=== PATIENT | female | born 1945 | race Caucasian/White ===

== ENCOUNTER → 2017-10-11 | Outpatient (REF) | payer MEDICARE ==
[2017-10-11 16:06] LABS: BASO # 0.1 10^3/uL (0.0-0.2); BASO % 0.7 % (0.0-1.0); EOS # 0.3 10^3/uL (0.0-0.50); EOS % 2.6 % (0.0-3.0); HEMATOCRIT 41.9 % (36.0-47.0); HEMOGLOBIN 13.2 g/dl (12.0-16.0); IMMATURE GRANULOCYTE % 0.2 % (0-3.0); LYMPH % 18.6 % (24.0-44.0); MEAN CORPUSCULAR HEMOGLOBIN 27.1 pg (27.0-33.0); MEAN CORPUSCULAR HGB CONC 31.5 g/dl (32.0-36.5); MONO # 0.6 10^3/uL (0.0-0.8); MONO % 5.7 % (0.0-5.0); NEUTROPHILS # 7.7 10^3/uL (1.8-7.7); NEUTROPHILS % 72.2 % (36.0-66.0); PLATELET COUNT, AUTOMATED 309 10^3/uL (150-450); RED BLOOD COUNT 4.87 10^6/uL (4.00-5.40); RED CELL DISTRIBUTION WIDTH 14.6 % (11.5-14.5); WHITE BLOOD COUNT 10.6 10^3/uL (4.0-10.0)
[2017-10-11 16:17] LABS: C REACTIVE PROTEIN QUANTITATIV 0.63 MG/DL (0.00-0.30)
[2017-10-11 17:59] LABS: ERYTHROCYTE SEDIMENTATION RATE 32 mm/hr (0-30)
== END ==
LOC: M LABDRAW1 13:43
DX: Z96.652 Presence of left artificial knee joint (principal)
CPT/HCPCS: 86140

== ENCOUNTER → 2017-11-11 | Outpatient (CLI) | payer MEDICARE | LOC: M RAD 09:45 | DX: Z96.652 Presence of left artificial knee joint (principal) | CPT/HCPCS: 78315 ==

== ENCOUNTER 2019-04-17 11:11 | Day surgery (SDC) | payer MEDICARE ==
[~2019-04-17] VITALS: Ht 165.1 cm; Wt 124.7 kg
[~2019-04-17 11:11] MED LIST: ATOR1TAB21 PO; CARV25TA PO; COLE1TAB PO; ENAL20TA PO; FURO40TA2 PO; LIDOCAINE 1% MDV 20ML VIAL SQ PRN; LR 1,000 ML IV ONE; WARF-58 PO; ceFAZolin SOD 1 GM in D5W MINI-BAG PLUS 50 ML IV ONE; ceFAZolin SOD 2 GM in IV 1 EA IV ONE
[2019-04-17] MEDS ORDERED: PROPOFOL 200 MG/20 ML VIAL As Ordered ONE (11:44)
[2019-04-17] MEDS ORDERED: LIDOCAINE 2% INJ 100 MG/5 ML SDV (FOR ANES.) As Ordered ONE (11:44)
[2019-04-17] MEDS ORDERED: dexameTHASONE 4 MG/ML 1ML VIAL (J1100) As Ordered ONE (11:45)
[2019-04-17] MEDS ORDERED: ONDANSETRON 4MG/2ML VIAL (J2405) As Ordered ONE (11:45)
[2019-04-17] MEDS ORDERED: fentaNYL 100 MCG/2 ML INJECTION (J3010) As Ordered ONE (11:46)
[2019-04-17] MEDS ORDERED: KETOROLAC 60 MG/2 ML VIAL (J1885) As Ordered ONE (11:49)
[2019-04-17] MEDS ORDERED: VANCOMYCIN 1000 MG/20 ML VIAL (J3370) As Ordered ONE (12:07)
[2019-04-17] MEDS ORDERED: LIDOCAINE 1% SDV INJ 30 ML VIAL As Ordered ONE (12:07)
[2019-04-17] MEDS: BACITRACIN OINT 30GM As Ordered ONE ×2 (12:07→14:06)
[2019-04-17 13:00] LABS: INR 1.41; PROTHROMBIN TIME 16.9 SECONDS (11.8-14.0)
[2019-04-17 15:10] VITALS: BP 222/102
--- NOTE | 2019-04-17 16:25 | RO ---
DATE OF PROCEDURE: PREPROCEDURE DIAGNOSIS: Pacemaker pulse generator battery depletion. POSTPROCEDURE DIAGNOSIS: Pacemaker pulse generator battery depletion, ventricular pacemaker lead malfunction (outer insulation break of the existing pacemaker lead). PROCEDURE PERFORMED: Aborted pacemaker pulse generator change. FINDINGS: 1. Pacemaker pulse generator battery depletion. 2. Pacemaker lead malfunction (complete circumferential outer insulation break of the existing ventricular pacemaker lead). SURGEON: Fredrick Chen MD BELT MOLDER: None. ANESTHESIA: Lidocaine 1%/monitored anesthetic care. SPECIMENS: None. ESTIMATED BLOOD LOSS: Less than 3 mL. No blood products replaced. No drains. No complications. DESCRIPTION OF PROCEDURE: The patient was prepped and draped over the left pectoral region. 3M Ioban film was applied. She received 3 grams of Ancef IV oim consultant to the operating room (OR). An incision was made with a PEAK PlasmaBlade about a centimeter to a centimeter and a half below the original pacemaker incision scar. I then used fine scissor dissection to work my way down to the anterior capsule overlying the pacemaker pulse generator. As I was dissecting down, I discovered part of the existing right ventricle lead was overlying the top of the pacemaker pulse generator and furthermore there was a full circumferential break with about a 1 mm gap in the insulation between the broken parts of the insulation with exposed outer coil, middle coil. At this point, my options were to apply silicone glue over the insulation break with or without a tie-down suture placed over the break, implanting a new pacemaker lead from the left subclavian, implanting an entirely new single-chamber pacemaker system over the right pectoral region, or abandoning the procedure today and referring the patient for placement of a Medtronic Micra wireless pacemaker in [place]. I felt that the safest course of action that would be safest for the patient, would be to abandon the procedure today and to have the patient receive a wireless Medtronic Micra single-chamber pacemaker in [place] by Dr. Judd Dominguez This was discussed with the patient and her after I completed the operation today. I closed the pocket of the first layer consisting of individual sutures consisting of #2-0 Vicryl. I used a few additional #3-0 Vicryl sutures to approximate the more superficial layer. The skin was then closed using olga following which antibiotic ointment was applied as well as Telfa and a Bio-occlusive dressing.
== END 2019-04-17 15:28 | disposition home or self-care (01) ==
LOC: M SDC 11:11
PROVIDERS: ATTEND Internal Medicine Cardiovascular Disease
DX: Z45.010 Encounter for checking and testing of cardiac pacemaker pulse generator [battery] (principal); T82.110A Breakdown (mechanical) of cardiac electrode, initial encounter; I48.2 Chronic atrial fibrillation; I25.10 Atherosclerotic heart disease of native coronary artery without angina pectoris; I10 Essential (primary) hypertension; E78.5 Hyperlipidemia, unspecified; G47.30 Sleep apnea, unspecified; Z79.01 Long term (current) use of anticoagulants; Z79.899 Other long term (current) drug therapy; Z87.891 Personal history of nicotine dependence; Z86.711 Personal history of pulmonary embolism; Y71.8 Miscellaneous cardiovascular devices associated with adverse incidents, not elsewhere classified
CPT/HCPCS: 33227; 36415; 85610; J0690; J1100; J1885; J2405; J3010